=== PATIENT | female | born 1940 | race Caucasian/White ===

== ENCOUNTER → 2017-01-10 16:49 | Outpatient (CLI) | payer OTHER, MEDICARE | END | disposition home or self-care (01) | LOC: D.MAMMO 09:15 | DX: Z12.31 Encounter for screening mammogram for malignant neoplasm of breast (principal) ==

== ENCOUNTER → 2018-03-03 19:42 | Outpatient (CLI) | payer OTHER, MEDICARE | END | disposition home or self-care (01) | LOC: D.MAMMO 13:00 | DX: Z12.31 Encounter for screening mammogram for malignant neoplasm of breast (principal) ==

== ENCOUNTER → 2019-01-24 13:39 | Outpatient (CLI) | payer MEDICARE | END | disposition home or self-care (01) | LOC: D.CT 13:39 | PROVIDERS: ATTEND Family Medicine | DX: H53.8 Other visual disturbances (principal) ==

== ENCOUNTER → 2019-03-07 16:26 | Outpatient (CLI) | payer MEDICARE | END | disposition home or self-care (01) | LOC: D.MAMMO 02-06 14:00 | PROVIDERS: ATTEND Family Medicine | DX: Z12.31 Encounter for screening mammogram for malignant neoplasm of breast (principal) ==

== ENCOUNTER 2019-08-26 12:07 | Emergency (ER) | payer MEDICARE ==
[~2019-08-26] VITALS: Ht 172.7 cm; Wt 86.4 kg
[2019-08-26 13:03] LABS: EOSINOPHILS 4.4 % (0-7); HEMATOCRIT 46.1 % (36.0-48.0); HEMOGLOBIN 15.4 g/dL (12-16); IMMATURE GRANULOCYTES 0.2 % (0-5); MCH 31.3 pg (26.0-34.0); MCHC 33.4 g/dL (31.0-37.0); MCV 93.7 fL (80.0-100.0); MEAN PLATELET VOLUME 10.6 fL (7.4-10.4); MONOCYTES 8.5 % (2-11); NEUTROPHILS 65.9 % (40-80); PLATELET COUNT 168 10x3/uL (130-400); RBC 4.92 10x6/uL (4.00-5.40); RDW 13.5 % (11.5-14.5); WBC 9.2 10x3/uL (4.8-10.8)
[2019-08-26 13:15] LABS: APTT 24.2 SECONDS (22.8-39.4); INR 1.06 (0.85-1.17); PROTIME 13.3 SECONDS (11.6-15.0)
[2019-08-26 13:23] LABS: ALBUMIN 3.8 g/dL (3.4-5.0); ALKALINE PHOSPHATASE 100 U/L (46-116); ALT (SGPT) 16 U/L (10-68); BILIRUBIN - TOTAL 0.57 mg/dL (0.2-1.3); CALC OSMOLALITY 287 mosm/kg (275-300); CALCIUM 9.1 mg/dL (8.5-10.1); CARBON DIOXIDE 25.7 mmol/L (21.0-32.0); CHLORIDE - SERUM 109 mmol/L (98-107); CREATININE - SERUM 1.2 mg/dL (0.6-1.3); GLUCOSE 104 mg/dL (74-106); POTASSIUM - SERUM 4.2 mmol/L (3.5-5.1); PROTEIN - SERUM 7.2 g/dL (6.4-8.2); SODIUM 143 mmol/L (136-145); UREA NITROGEN 22 mg/dL (7-18); eGFR NON AFRICAN AMERICAN 46 mL/min (90-120)
[2019-08-26 13:48] LABS: CKMB 1.4 U/L (0.0-3.6); CREATINE KINASE 98 UL (21-215); MAGNESIUM - SERUM 2.1 mg/dL (1.8-2.4); THYROID STIMULATING HORMONE 3.96 uIU/mL (0.36-3.74)
[2019-08-26 13:49] LABS: TROPONIN-I < 0.017 ng/mL (0.000-0.060)
[2019-08-26 14:19] LABS: APPEARANCE CLEAR (CLEAR); BILIRUBIN NEGATIVE (NEGATIVE); COLOR YELLOW (YELLOW); GLUCOSE NEGATIVE (NEGATIVE); KETONE NEGATIVE (NEGATIVE); NITRITE NEGATIVE (NEGATIVE); PROTEIN NEGATIVE (NEGATIVE); SPECIFIC GRAVITY 1.015 (1.005-1.020); UROBILINOGEN NORMAL (NORMAL)
[2019-08-26 14:20] LABS: BACTERIA FEW /hpf (NEGATIVE); EPITHELIAL CELLS 0-5 /hpf (0-5); RED CELLS - URINE RARE /hpf (0-5); WHITE CELLS - URINE 0-5 /hpf (NEGATIVE)
== END 2019-08-26 15:23 | disposition other institution (70) ==
LOC: D.ER 12:07
PROVIDERS: Emergency Medicine
DX: G45.9 Transient cerebral ischemic attack, unspecified (principal); R47.02 Dysphasia; I10 Essential (primary) hypertension

== ENCOUNTER 2019-09-17 17:01 | Inpatient (IN) | payer MEDICARE ==
[~2019-09-17] VITALS: Ht 172.7 cm; Wt 84.8 kg
[2019-09-17] MEDS ORDERED: REMERON15 MG PO (17:16)
[2019-09-17] MEDS ORDERED: AVAPRO150 MG PO (17:16)
[2019-09-17] MEDS ORDERED: ZETIA10 MG PO (17:16)
[2019-09-17] MEDS ORDERED: SYNTHROID25 MCG PO (17:16)
[2019-09-17] MEDS ORDERED: PROTONIX40 MG PO (17:17)
[2019-09-17] MEDS ORDERED: VITAMIN D5000 UNIT PO (17:17)
[2019-09-17] MEDS ORDERED: LIPITOR10 MG PO (17:18)
[2019-09-17] MEDS ORDERED: LEVOCETIRIZINE PO (17:19)
[2019-09-17] MEDS ORDERED: NORVASC10 MG PO (17:19)
[2019-09-17] MEDS ORDERED: ASPIRIN81 MG PO (17:20)
[2019-09-17] MEDS ORDERED: LIPITOR40 MG PO (17:23)
[2019-09-17 18:05] LABS: BASOPHILS 0.4 % (0-2); EOSINOPHILS 1.4 % (0-7); HEMATOCRIT 42.7 % (36.0-48.0); HEMOGLOBIN 13.8 g/dL (12-16); IMMATURE GRANULOCYTES 0.2 % (0-5); MCH 30.9 pg (26.0-34.0); MCHC 32.3 g/dL (31.0-37.0); MCV 95.7 fL (80.0-100.0); MEAN PLATELET VOLUME 10.8 fL (7.4-10.4); MONOCYTES 10.3 % (2-11); NEUTROPHILS 72.7 % (40-80); RBC 4.46 10x6/uL (4.00-5.40); RDW 12.5 % (11.5-14.5); WBC 13.2 10x3/uL (4.8-10.8)
[2019-09-17 18:28] LABS: CALC OSMOLALITY 286 mosm/kg (275-300); CALCIUM 9.1 mg/dL (8.5-10.1); CARBON DIOXIDE 25.1 mmol/L (21.0-32.0); CHLORIDE - SERUM 107 mmol/L (98-107); CREATININE - SERUM 1.2 mg/dL (0.6-1.3); GLUCOSE 115 mg/dL (74-106); POTASSIUM - SERUM 4.2 mmol/L (3.5-5.1); SODIUM 142 mmol/L (136-145); UREA NITROGEN 20 mg/dL (7-18); eGFR NON AFRICAN AMERICAN 46 mL/min (90-120)
[2019-09-17 18:30] LABS: PLATELET COUNT 244 10x3/uL (130-400)
--- NOTE | 2019-09-17 18:35 | NUR ---
O2 SAT AT 88% ON RA, RESPIRATIONS EVEN AND UNLABORED. O2 AT 3LPM VIA NC APPLIED, O2 SAT INCREASED TO 96%. TREATING PROVIDER NOTIFIED OF THE ABOVE. PT DENIES ANY PAIN OR FURTHER NEEDS. CALL LIGHT IN REACH, FAMILY AT BEDSIDE.
[2019-09-17 18:42] LABS: ALBUMIN 3.4 g/dL (3.4-5.0); ALKALINE PHOSPHATASE 122 U/L (46-116); ALT (SGPT) 24 U/L (10-68); BILIRUBIN - TOTAL 0.57 mg/dL (0.2-1.3); CKMB 1.9 U/L (0.0-3.6); CREATINE KINASE 103 UL (21-215); PRO BNP 7963 pg/mL (0-450); PROTEIN - SERUM 7.1 g/dL (6.4-8.2)
[2019-09-17 18:47] VITALS: BP 136/79
[2019-09-17 19:03] LABS: TROPONIN-I 0.377 ng/mL (0.000-0.060)
--- NOTE | 2019-09-17 19:11 | NUR ---
HAND OFF REPORT GIVEN TO CAIN ARNOLD
--- NOTE | 2019-09-17 19:15 | NUR ---
PT RESTING ON BED. NO S/S OF ACUTE DISTRESS NOTED. PT FAMILY AT BEDSIDE.
[2019-09-17 20:00] VITALS: BP 146/83
--- NOTE | 2019-09-17 20:00 | NUR ---
PT AMBULATED TO RESTROOM WITH A STEADY GAIT. SPOUSE AT SIDE.
[2019-09-17 20:08] LABS: MAGNESIUM - SERUM 2.1 mg/dL (1.8-2.4); THYROID STIMULATING HORMONE 3.08 uIU/mL (0.36-3.74)
[2019-09-17 21:14] LABS: CKMB 1.6 U/L (0.0-3.6); CREATINE KINASE 100 UL (21-215)
[2019-09-17 21:19] LABS: TROPONIN-I 0.276 ng/mL (0.000-0.060)
[2019-09-17] MEDS ORDERED: COZAAR50 MG PO (21:50)
--- NOTE | 2019-09-17 21:50 | NUR ---
RECIEVED TO ROOM 2127 FROM ER VIA . PT A&O. VITALS STABLE. IV TO RIGHT HAND SL, SITE CLEAN AND DRY. O2 AT 2 LITERS VIA IL, PT STATED THAT SHE DOES NOT WEAR OXYGEN AT HOME. PLACED ON TELEMETRY, 68 SR. HISTORY AND MED REC OBTAINED. PT CURRENTLY DENIES PAIN OR NEEDS, BED LOW, CL IN REACH.
[2019-09-18] VITALS: BP 117/69
--- NOTE | 2019-09-18 00:25 | NUR ---
WARM BLANKET PLACED ON PT AT PT REQUEST.
--- NOTE | 2019-09-18 03:38 | NUR ---
RESTING WITH EYES CLOSED, RESPERATIONS EVEN, NO S/S DISTRESS NOTED.
[2019-09-18 04:00] VITALS: BP 130/69
[2019-09-18 05:40] LABS: CKMB 1.3 U/L (0.0-3.6); CREATINE KINASE 86 UL (21-215)
--- NOTE | 2019-09-18 07:03 | NUR ---
REPORT RECEIVED. WILL CONTINUE WITH POC. PT CURRENTLY LYING SUPINE. CALL LIGHT W/I REACH. RR EVEN AND UNLABORED ON 2L 02. R.HAND PIV IS SALINE LOCKED. PT IS AAO AND DENIES ANY NEEDS AT THIS TIME. NO S/S OF DISTRESS NOTED. WILL CTM.
[2019-09-18 09:38] LABS: CKMB 1.5 U/L (0.0-3.6); CREATINE KINASE 84 UL (21-215)
[2019-09-18 09:39] LABS: TROPONIN-I 0.235 ng/mL (0.000-0.060)
[2019-09-18 12:05] VITALS: BP 118/41
--- NOTE | 2019-09-18 14:29 | NUR ---
I have reviewed this patient and I concur with the Shift Assessment completed by the Licensed Practical Nurse today this shift.
[2019-09-18 14:36] VITALS: Ht 172.7 cm; Wt 84.8 kg
[2019-09-18 16:00] VITALS: BP 106/64
--- NOTE | 2019-09-18 16:02 | MORECARE ---
CASE MANAGEMENT DISCHARGE SUMMARY PATIENT: TRACY SHERIDAN UNIT: [id number] ADM DATE: 09/17/19 AGE: 78 : 42 SEX: F ROOM/BED: D.3278 AUTHOR: MISSAEL HART PHYSICIAN: REFERRING PHYSICIAN: PATRICIA KEANE MD DATE OF SERVICE: 09/18/19 Discharge Plan Patient Name: TRACY SHERIDAN Facility: [facility]:[place] : 1940 Planned Disposition: Home Anticipated Discharge Date: 09/20/19 Discharge Date: Expected LOS: 3 Initial Reviewer: [email or web address] Initial Review Date: 09/17/2019 Generated: 09/18/19 5:02 pm DCPIA - Discharge Planning Initial Assessment Updated by [email or web address]: Larisa Brambila on 09/18/19 3:59 pm * Is the patient Alert and Oriented? Yes * How many steps to enter\exit or inside your home? * PCP Dr. Keane * Pharmacy [facility] #2 * Preadmission Environment Home with Family * ADLs Independent * Equipment Cane Nebulizer Rolling Walker Wheelchair * List name and contact numbers for known caregivers / representatives who currently or will assist patient after discharge: Tre Sheridan - spouse - [phone] * Verbal permission to speak to the caregivers and representatives has been obtained from the patient. Yes * Community resources currently utilized None * Additional services required to return to the preadmission environment? No * Can the patient safely return to the preadmission environment? Yes * Has this patient been hospitalized within the prior 30 days at any hospital? Yes Patient Name: TRACY SHERIDAN Page [phone] at 1602 All edits/amendments must be made on the electronic document DICTATION DATE: 09/18/191601 HEEL SEWER: CHAU 09/18/19 160 RPT#: [id number] DC DATE: STATUS: ADM IN [facility] [address] [place] [address] END OF REPORT
--- NOTE | 2019-09-18 16:11 | MORECARE ---
CASE MANAGEMENT DISCHARGE SUMMARY PATIENT: TRACY SHERIDAN UNIT: [id number] ADM DATE: 09/17/19 AGE: 78 : 42 SEX: F ROOM/BED: D.0524 AUTHOR: MISSAEL HART PHYSICIAN: REFERRING PHYSICIAN: PATRICIA KEANE MD DATE OF SERVICE: 09/18/19 Discharge Plan Patient Name: TRACY SHERIDAN Facility: [facility]:[place] : 1940 Planned Disposition: Home Anticipated Discharge Date: 09/20/19 Discharge Date: Expected LOS: 3 Initial Reviewer: [email or web address] Initial Review Date: 09/17/2019 Generated: 09/18/19 5:11 pm Comments DCP- Discharge Planning Updated by [email or web address]: Larisa Brambila on 09/18/19 3:[address] DC PLAN: Return home with her independently. ANTICIPATED DC NEEDS: Denied known dc needs at this time. CM met with patient to complete initial dc planning assessment. CM educated patient on the CM role and verbal consent given by patient to complete assessment. CM verified patient's address, phone number, and emergency contact phone numbers. Patient lives at home with her and reports she is independent in her care at home. At discharge patient plans to return home and feels this is a safe discharge. CM discussed availability of home health, rehab services, and medical equipment. Patient denied known discharge needs at this time. Patient reports her will transport her home at time of discharge. CM will continue to follow and will assist as needed with dc plans/needs. Lraisa Brambila RN, [facility] DCPIA - Discharge Planning Initial Assessment Updated by [email or web address]: Larisa Brambila on 09/18/19 3:59 pm * Is the patient Alert and Oriented? Yes * How many steps to enter\exit or inside your home? * PCP Dr. Keane * Pharmacy [facility] #2 * Preadmission Environment Home with Family * ADLs Independent * Equipment Cane Nebulizer Rolling Walker Wheelchair * List name and contact numbers for known caregivers / representatives who currently or will assist patient after discharge: Tre Sheridan - [facility] - [phone] * Verbal permission to speak to the caregivers and representatives has been obtained from the patient. Yes * Community resources currently utilized None * Additional services required to return to the preadmission environment? No * Can the patient safely return to the preadmission environment? Yes * Has this patient been hospitalized within the prior 30 days at any hospital? Yes Last DP export: 09/18/19 3:02 Patient Name: TRACY SHERIDAN Page [phone] at 1611 All edits/amendments must be made on the electronic document DICTATION DATE: 09/18/191609 SOCIAL MEDIA MARKETING MANAGER: CHAU 09/18/191609 RPT#: [id number] DC DATE: STATUS: ADM IN [facility] [address] [place] [address] END OF REPORT
[2019-09-18 20:00] VITALS: BP 105/65
[2019-09-19] VITALS: BP 116/71
[2019-09-19 04:00] VITALS: BP 125/57
--- NOTE | 2019-09-19 07:10 | NUR ---
PT LYING IN BED WITH HOB ELEVATED. ALERT AND ORIENTED. PT ASKED IF SHE COULD SHOWER TODAY AND I STATED HER SHE COULD WITH ASSISTANCE. PT HAS NO FURTHER NEEDS AT THIS TIME. BED LOW. CL IN REACH.
--- NOTE | 2019-09-19 10:37 | NUR ---
I have reviewed this patient and I concur with the Shift Assessment completed by the Licensed Practical Nurse today this shift.
[2019-09-19 13:01] VITALS: BP 110/647
--- NOTE | 2019-09-19 15:17 | NUR ---
PT TOOK SHOWER WITH SCOW CAPTAIN ASSISTANCE.
--- NOTE | 2019-09-19 17:14 | HP ---
PATIENT: TRACY SHERIDAN MEDICAL RECORD: [id number] ACCOUNT: [id number] LOCATION:[address] : 44 ADMISSION DATE: 09/17/19 PCP: PATRICIA DE LA CRUZ MD HISTORY AND PHYSICAL EXAMINATION REASON FOR ADMISSION: Shortness of breath and cough. HISTORY OF PRESENT ILLNESS: The patient is a 78-year-old female, who incurred a left thalamic CVA a month ago. She was transferred to [facility] in [place] for neurological consultation. Her workup there was unremarkable including CT of the carotids and MRA of the brain except for left thalamic infarct. She also had a CARMEN that showed ejection fraction of 65%. No valvular issues or abnormal wall issues. She said she has been tired since that, but last weekend she and her drove to [place] for a family wedding. Said night she just felt like she had a cough and chills, but she had not developed fever. She felt short of breath with walking any distance. That lasted throughout the weekend. She had increasing dry cough. Yesterday, her checked her sat and was in the mid 80s and he brought her to the Emergency Room for evaluation. Dr. Rangel attended the patient and felt she was in congestive heart failure based on his interpretation of her chest x-ray, which radiology read as normal, and elevated troponin and BNP. She has no history of congestive heart failure. Denies any recent peripheral edema or leg swelling or exertional chest pain. She denies sputum production or fever. She has been fatigued since her CVA, but has had no exertional chest pain. 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 PAST SURGICAL HISTORY: He had bladder suspension and lipoma removed from the left axilla. FAMILY HISTORY: Father at 88, had hypertension and CAD. Mother with essential hypertension and mild renal insufficiency. SOCIAL HISTORY: Nonsmoker, nondrinker. [place] is . [place] . She is up to date on immunizations including Prevnar and Pneumovax and flu vaccine. HOME MEDICATIONS: Mirtazapine 15 mg at bedtime, losartan 50 mg daily, aspirin 81 mg a day, atorvastatin 80 mg at bedtime, vitamin D 5000 unit tablet weekly, levothyroxine 25 mcg p.o. daily. ALLERGIES: MACRODANTIN, LUMINAL, PRAVASTATIN, AND TOPAMAX. REVIEW OF SYSTEMS: CONSTITUTIONAL: Feels fatigued for the last month since her stroke. No fever. HEENT: No recent visual change, sinus congestion, or sore throat. RESPIRATORY: Has had a dry cough nonproductive, exertional dyspnea for the last 4 days. Denies sputum production of any significance. CARDIAC: Denies exertional chest pain, but admits to exertional dyspnea. History of hypertension. No history of claudication or palpitations. HISTORY AND PHYSICAL [id number] TRACY SHERIDAN GASTROINTESTINAL: No nausea, vomiting, change in stools, or blood per rectum. GENITOURINARY: Mild stress incontinence. No dysuria. GYNECOLOGIC: No vaginal bleeding. ENDOCRINE: Denies polyuria, polydipsia, heat or cold intolerance. NEUROLOGIC: Recent thalamic stroke with minimal deficit. She has mild cognitive impairment to recent memory. PHYSICAL EXAMINATION: VITAL SIGNS: Temperature 98.2, heart rate 102 and regular, respirations were 20, sat was 88% in the ED and responding to O2 at 2 liters to 94%, blood pressure 140/86. GENERAL: The patient is alert and oriented, not tachypneic. EYES: Clear. NECK: Supple. CHEST: Totally clear without wheeze or rales. Carotids clear. HEART: Regular rate without MGR. PMI appropriate. ABDOMEN: Soft, mildly obese, nontender. EXTREMITIES: Shows 1+ pretibial edema. Negative Homans sign. NEUROLOGICAL: No cords noted. LABORATORY DATA: Cardiac enzymes showed a troponin of 0.3, elevated from 0.276 on admission with normal CPK-MB and creatine kinase. White count is 13,000 with normal diff, H&H is 13.8 and 42.7 respectively. BUN is 20, creatinine is 1.2, calcium 9.1, magnesium 2.1, alkaline phosphatase 122. Troponin 0.377 initially on admission. ProBNP is 8376. Chest x-ray unremarkable. ASSESSMENT: Exertional dyspnea, etiology unknown, possible cardiac source. Cough, etiology unknown, does not appear infectious. History of recent thalamic CVA with normal CARMEN. Mild cognitive impairment. Fibromyalgia. Essential hypertension. Hyperlipidemia. PLAN: The patient will be admitted. We will check D-dimer. If elevated, CTA of the chest. Otherwise, cardiology consult will be obtained. TRANSINT:[id number] Voice Confirmation ID: [id number] DOCUMENT ID: [id number] PATRICIA DE LA CRUZ MD at 1714 CC: [id number] DICTATION DATE: 09/18/19717 FISHER: 09/18/19 08 ADM IN [place] [id number] [place] [id number]
[2019-09-19 20:00] VITALS: BP 121/75
[2019-09-20] VITALS (7 sets, daily range): BP systolic 102–125; BP diastolic 57–78
[2019-09-20 05:17] LABS: BASOPHILS 0.6 % (0-2); HEMOGLOBIN 13.4 g/dL (12-16); IMMATURE GRANULOCYTES 0.2 % (0-5); LYMPHOCYTES 19.8 % (15-50); MCHC 32.7 g/dL (31.0-37.0); MCV 94.9 fL (80.0-100.0); MONOCYTES 11.3 % (2-11); NEUTROPHILS 65.1 % (40-80); PLATELET COUNT 225 10x3/uL (130-400); RBC 4.32 10x6/uL (4.00-5.40); RDW 12.4 % (11.5-14.5); WBC 9.5 10x3/uL (4.8-10.8)
[2019-09-20 05:33] LABS: ANION GAP 14.2 mmol/L (8-16); CALCIUM 8.6 mg/dL (8.5-10.1); CARBON DIOXIDE 23.4 mmol/L (21.0-32.0); CREATININE - SERUM 1.1 mg/dL (0.6-1.3); POTASSIUM - SERUM 3.6 mmol/L (3.5-5.1)
--- NOTE | 2019-09-20 07:15 | NUR ---
RECEIVED PT IN BED AAOX4 RESP UNLABORED SKIN W/D COLOR WNL DENIES ANY NEEDS OR DISCOMFORT AT THIS TIME
[2019-09-20 09:10] LABS: HAPTOGLOBIN 244 mg/dL (34-200)
--- NOTE | 2019-09-20 13:00 | NUR ---
Nutrition Follow-up: Pt reports improved appetite/PO intake. No BM since before admit. Diet: Cardiac No new wt Labs reviewed Meds noted: Remeron -Continue current diet as tolerated. -[place] food preferences within diet restrictions. -MD may consider stool softener. -RD following.
--- NOTE | 2019-09-20 13:43 | MORECARE ---
CASE MANAGEMENT DISCHARGE SUMMARY PATIENT: TRACY SHERIDAN UNIT: [id number] ADM DATE: 09/17/19 AGE: 78 : 42 SEX: F ROOM/BED: D.6784 AUTHOR: MISSAEL HART PHYSICIAN: REFERRING PHYSICIAN: PATRICIA KEANE MD DATE OF SERVICE: 09/20/19 Discharge Plan Patient Name: TRACY SHERIDAN Facility: [facility]:[place] : 1940 Planned Disposition: Home Anticipated Discharge Date: 09/20/19 Discharge Date: Expected LOS: 3 Initial Reviewer: [email or web address] Initial Review Date: 09/17/2019 Generated: 09/20/19 2:43 pm Comments DCP- Discharge Planning Updated by [email or web address]: Larisa Brambila on 09/18/19 3:[address] DC PLAN: Return home with her independently. ANTICIPATED DC NEEDS: Denied known dc needs at this time. CM met with patient to complete initial dc planning assessment. CM educated patient on the CM role and verbal consent given by patient to complete assessment. CM verified patient's address, phone number, and emergency contact phone numbers. Patient lives at home with her and reports she is independent in her care at home. At discharge patient plans to return home and feels this is a safe discharge. CM discussed availability of home health, rehab services, and medical equipment. Patient denied known discharge needs at this time. Patient reports her will transport her home at time of discharge. CM will continue to follow and will assist as needed with dc plans/needs. Larisa Brambila RN, [facility] DCPIA - Discharge Planning Initial Assessment Updated by [email or web address]: Larisa Brambila on 09/18/19 3:59 pm * Is the patient Alert and Oriented? Yes * How many steps to enter\exit or inside your home? * PCP Dr. Keane * Pharmacy [facility] #2 * Preadmission Environment Home with Family * ADLs Independent * Equipment Cane Nebulizer Rolling Walker Wheelchair * List name and contact numbers for known caregivers / representatives who currently or will assist patient after discharge: Tre Sheridan - [facility] - [phone] * Verbal permission to speak to the caregivers and representatives has been obtained from the patient. Yes * Community resources currently utilized None * Additional services required to return to the preadmission environment? No * Can the patient safely return to the preadmission environment? Yes * Has this patient been hospitalized within the prior 30 days at any hospital? Yes Last DP export: 09/18/19 3:11 Patient Name: TRACY SHERIDAN Page [phone] at 1343 All edits/amendments must be made on the electronic document DICTATION DATE: 09/20/19 134 HOME AIDE: CHAU 09/20/19 1343 RPT#: [id number] DC DATE: STATUS: ADM IN [facility] [address] [place] [address] END OF REPORT
[2019-09-20 15:10] LABS: ACLA - IGG AB <9 GPL U/mL (0-14); ACLA - IGM AB 10 MPL U/mL (0-12)
--- NOTE | 2019-09-20 16:17 | MORECARE ---
CASE MANAGEMENT DISCHARGE SUMMARY PATIENT: TRACY SHERIDAN UNIT: [id number] ADM DATE: 09/17/19 AGE: 78 : 42 SEX: F ROOM/BED: D.6554 AUTHOR: MISSAEL HART PHYSICIAN: REFERRING PHYSICIAN: PATRICIA KEANE MD DATE OF SERVICE: 09/20/19 Discharge Plan Patient Name: TRACY SHERIDAN Facility: [facility]:[place] : 1940 Planned Disposition: Home Anticipated Discharge Date: 09/20/19 Discharge Date: Expected LOS: 3 Initial Reviewer: [email or web address] Initial Review Date: 09/17/2019 Generated: 09/20/19 5:16 pm Comments DCP- Discharge Planning Updated by [email or web address]: Larisa Brambila on 09/18/19 3:[address] DC PLAN: Return home with her independently. ANTICIPATED DC NEEDS: Denied known dc needs at this time. CM met with patient to complete initial dc planning assessment. CM educated patient on the CM role and verbal consent given by patient to complete assessment. CM verified patient's address, phone number, and emergency contact phone numbers. Patient lives at home with her and reports she is independent in her care at home. At discharge patient plans to return home and feels this is a safe discharge. CM discussed availability of home health, rehab services, and medical equipment. Patient denied known discharge needs at this time. Patient reports her will transport her home at time of discharge. CM will continue to follow and will assist as needed with dc plans/needs. Larisa Brambila RN, [facility] DCPIA - Discharge Planning Initial Assessment Updated by [email or web address]: Larisa Brambila on 09/18/19 3:59 pm * Is the patient Alert and Oriented? Yes * How many steps to enter\exit or inside your home? * PCP Dr. Keane * Pharmacy [facility] #2 * Preadmission Environment Home with Family * ADLs Independent * Equipment Cane Nebulizer Rolling Walker Wheelchair * List name and contact numbers for known caregivers / representatives who currently or will assist patient after discharge: Tre Sheridan - [facility] - [phone] * Verbal permission to speak to the caregivers and representatives has been obtained from the patient. Yes * Community resources currently utilized None * Additional services required to return to the preadmission environment? No * Can the patient safely return to the preadmission environment? Yes * Has this patient been hospitalized within the prior 30 days at any hospital? Yes External Providers External Provider: [facility] Next Contact Date: 09/20/2019 Service Request Date: Service Type: Resolution: Reviewer: Comments: Coverage Notice Reviewer: POORNIMA Green Notice Issued Date-Time: 09/20/2019 15:10 Notice Type: IM Discharge Notice Notice Delivered To: Patient Relationship to Patient: Operations Specialists Name: Delivery Method: HAND - Hand Delivered [place] Days: Prior Verbal Notification: Recipient Understood Notice: Yes Recipient Signature: Yes Med Rec Note Co-signed by Attending: Coverage Notice Comment: Reviewer: POORNIMA Green Notice Issued Date-Time: 09/20/2019 15:10 Notice Type: Patient Choice Letter Notice Delivered To: Patient Relationship to Patient: Operations Specialists Name: Delivery Method: HAND - Hand Delivered [place] Days: Prior Verbal Notification: Recipient Understood Notice: Yes Recipient Signature: Yes Med Rec Note Co-signed by Attending: Coverage Notice Comment: BELKIS Holland DP export: 09/20/19 12:43 Patient Name: TRACY SHERIDAN Page 37925 at 1617 All edits/amendments must be made on the electronic document DICTATION DATE: 09/20/191615 HOUSEHOLD APPLIANCE ASSEMBLER: CHAU 09/20/191615 RPT#: [id number] DC DATE: STATUS: ADM IN [facility] [address] [place] [address] END OF REPORT
--- NOTE | 2019-09-20 16:34 | MORECARE ---
CASE MANAGEMENT DISCHARGE SUMMARY PATIENT: TRACY SHERIDAN UNIT: [id number] ADM DATE: 09/17/19 AGE: 78 : 42 SEX: F ROOM/BED: D.5851 AUTHOR: MISSAEL HART PHYSICIAN: REFERRING PHYSICIAN: PATRICIA KEANE MD DATE OF SERVICE: 09/20/19 Discharge Plan Patient Name: TRACY SHERIDAN Facility: [facility]:[place] : 1940 Planned Disposition: Home Anticipated Discharge Date: 09/20/19 Discharge Date: Expected LOS: 3 Initial Reviewer: [email or web address] Initial Review Date: 09/17/2019 Generated: 09/20/19 5:34 pm Comments DCP- Discharge Planning Updated by [email or web address]: Dev Green on 09/20/19 3:[address] Patient Name: TRACY SHERIDAN Admission Status: ER Accout number: [id number] Admission Date: 09-17-2019 : 1940 Admission Diagnosis: Attending: PATRICIA KEANE Current LOS: 3 Anticipated DC Date: 09-20-2019 Planned Disposition: Home Primary Insurance: [facility] [employer] Discharge Planning Comments: CM RECEIVED OXYGEN ORDER AND QUALIFYING OXYGEN TESTING, MET WITH PT IN ROOM TO DISCUSS DISCHARGE NEEDS AND PLANNING. CM DISCUSSED AVAILABILITY OF HOME HEALTH, REHAB SERVICES AND MEDICAL EQUIPMENT. PT WOULD LIKE OXYGEN FROM [facility]. CHOICE SIGNED. SPOUSE TO TRANSPORT HOME AT DISCHARGE. IMPORTANT MESSAGE FROM MEDICARE PROVIDED AND EXPLAINED. CM CALLED [facility], , SPOKE TO YUMIKO WHO TOOK OXYGEN ORDER. CM FAXED OXYGEN ORDER AND REFERRALTO [facility] AT [phone]. [facility] TO ARRANGE PORTABLE OXYGEN TO [facility] ROOM TOMORROW, 09-21-19 AND HOME OXYGEN FOR HOME DELIVERY AFTER PT ARRIVES HOME. Shrimp Trawler Captain: Dev Green DCP- Discharge Planning Updated by [email or web address]: Larisa Brambila on 09/18/19 3:[address] DC PLAN: Return home with her independently. ANTICIPATED DC NEEDS: Denied known dc needs at this time. CM met with patient to complete initial dc planning assessment. CM educated patient on the CM role and verbal consent given by patient to complete assessment. CM verified patient's address, phone number, and emergency contact phone numbers. Patient lives at home with her and reports she is independent in her care at home. At discharge patient plans to return home and feels this is a safe discharge. CM discussed availability of home health, rehab services, and medical equipment. Patient denied known discharge needs at this time. Patient reports her will transport her home at time of discharge. CM will continue to follow and will assist as needed with dc plans/needs. Larisa Brambila RN, [facility] DCPIA - Discharge Planning Initial Assessment Updated by [email or web address]: Larisa Brambila on 09/18/19 3:59 pm * Is the patient Alert and Oriented? Yes * How many steps to enter\exit or inside your home? * PCP Dr. Keane * Pharmacy [facility] #2 * Preadmission Environment Home with Family * ADLs Independent * Equipment Cane Nebulizer Rolling Walker Wheelchair * List name and contact numbers for known caregivers / representatives who currently or will assist patient after discharge: Tre Sheridan - [facility] - [phone] * Verbal permission to speak to the caregivers and representatives has been obtained from the patient. Yes * Community resources currently utilized None * Additional services required to return to the preadmission environment? No * Can the patient safely return to the preadmission environment? Yes * Has this patient been hospitalized within the prior 30 days at any hospital? Yes Coverage Notice Reviewer: [email or web address] Amina Green Notice Issued Date-Time: 09/20/2019 15:10 Notice Type: IM Discharge Notice Notice Delivered To: Patient Relationship to Patient: Spreader Name: Delivery Method: HAND - Hand Delivered [place] Days: Prior Verbal Notification: Recipient Understood Notice: Yes Recipient Signature: Yes Med Rec Note Co-signed by Attending: Coverage Notice Comment: Reviewer: [email or web address] Amina Green Notice Issued Date-Time: 09/20/2019 15:10 Notice Type: Patient Choice Letter Notice Delivered To: Patient Relationship to Patient: Spreader Name: Delivery Method: HAND - Hand Delivered [place] Days: Prior Verbal Notification: Recipient Understood Notice: Yes Recipient Signature: Yes Med Rec Note Co-signed by Attending: Coverage Notice Comment: [email or web address] Last DP export: 09/20/19 3:17 Patient Name: LEON SHERIDANANDRA Page 14173 at 1634 All edits/amendments must be made on the electronic document DICTATION DATE: 09/20/191633 CIVIL ENGINEERING DRAFTER: CHAU 09/20/191633 RPT#: [id number] DC DATE: STATUS: ADM IN [facility] [address] [place] [address] END OF REPORT
[2019-09-21 04:00] VITALS: BP 106/52
--- NOTE | 2019-09-21 07:06 | MORECARE ---
CASE MANAGEMENT DISCHARGE SUMMARY PATIENT: TRACY SHERIDAN UNIT: [id number] ADM DATE: 09/17/19 AGE: 78 : 42 SEX: F ROOM/BED: D.7397 AUTHOR: MISSAEL HART PHYSICIAN: REFERRING PHYSICIAN: PATRICIA KEANE MD DATE OF SERVICE: 09/21/19 Discharge Plan Patient Name: TRACY SHERIDAN Facility: [facility]:[place] : 1940 Planned Disposition: Home Anticipated Discharge Date: 09/20/19 Discharge Date: Expected LOS: 3 Initial Reviewer: [email or web address] Initial Review Date: 09/17/2019 Generated: 09/21/19 8:06 am Comments DCP- Discharge Planning Updated by [id number]: Dev Green on 09/20/19 3:[address] Patient Name: TRACY SHERIDAN Admission Status: ER Accout number: [id number] Admission Date: 09-17-2019 : 1940 Admission Diagnosis: Attending: PATRICIA KEANE Current LOS: 3 Anticipated DC Date: 09-20-2019 Planned Disposition: Home Primary Insurance: [facility] MEDICARE SOLUTIONS Discharge Planning Comments: CM RECEIVED OXYGEN ORDER AND QUALIFYING OXYGEN TESTING, MET WITH PT IN ROOM TO DISCUSS DISCHARGE NEEDS AND PLANNING. CM DISCUSSED AVAILABILITY OF HOME HEALTH, REHAB SERVICES AND MEDICAL EQUIPMENT. PT WOULD LIKE OXYGEN FROM [facility]. CHOICE SIGNED. SPOUSE TO TRANSPORT HOME AT DISCHARGE. IMPORTANT MESSAGE FROM MEDICARE PROVIDED AND EXPLAINED. CM CALLED [facility], , SPOKE TO YUMIKO WHO TOOK OXYGEN ORDER. CM FAXED OXYGEN ORDER AND REFERRALTO [facility] AT [phone]. [facility] TO ARRANGE PORTABLE OXYGEN TO [facility] ROOM TOMORROW, 09-21-19 AND HOME OXYGEN FOR HOME DELIVERY AFTER PT ARRIVES HOME. Ware Server: Dev Green DCP- Discharge Planning Updated by [email or web address]: Larisa Brambila on 09/18/19 3:[address] DC PLAN: Return home with her independently. ANTICIPATED DC NEEDS: Denied known dc needs at this time. CM met with patient to complete initial dc planning assessment. CM educated patient on the CM role and verbal consent given by patient to complete assessment. CM verified patient's address, phone number, and emergency contact phone numbers. Patient lives at home with her and reports she is independent in her care at home. At discharge patient plans to return home and feels this is a safe discharge. CM discussed availability of home health, rehab services, and medical equipment. Patient denied known discharge needs at this time. Patient reports her will transport her home at time of discharge. CM will continue to follow and will assist as needed with dc plans/needs. Larisa Brambila RN, [facility] DCPIA - Discharge Planning Initial Assessment Updated by [email or web address]: Larisa Brambila on 09/18/19 3:59 pm * Is the patient Alert and Oriented? Yes * How many steps to enter\exit or inside your home? * PCP Dr. Keane * [facility] * Preadmission Environment Home with Family * ADLs Independent * Equipment Cane Nebulizer Rolling Walker Wheelchair * List name and contact numbers for known caregivers / representatives who currently or will assist patient after discharge: Tre Sheridan - [facility] - [phone] * Verbal permission to speak to the caregivers and representatives has been obtained from the patient. Yes * Community resources currently utilized None * Additional services required to return to the preadmission environment? No * Can the patient safely return to the preadmission environment? Yes * Has this patient been hospitalized within the prior 30 days at any hospital? Yes Coverage Notice Reviewer: [email or web address] Amina Green Notice Issued Date-Time: 09/20/2019 15:10 Notice Type: IM Discharge Notice Notice Delivered To: Patient Relationship to Patient: Cheese Wrapper Name: Delivery Method: HAND - Hand Delivered [place] Days: Prior Verbal Notification: Recipient Understood Notice: Yes Recipient Signature: Yes Med Rec Note Co-signed by Attending: Coverage Notice Comment: Reviewer: [email or web address] Amina Green Notice Issued Date-Time: 09/20/2019 15:10 Notice Type: Patient Choice Letter Notice Delivered To: Patient Relationship to Patient: Cheese Wrapper Name: Delivery Method: HAND - Hand Delivered [place] Days: Prior Verbal Notification: Recipient Understood Notice: Yes Recipient Signature: Yes Med Rec Note Co-signed by Attending: Coverage Notice Comment: HEALTHTYRA Last DP export: 09/20/19 3:34 Patient Name: ARVIN TRACY Page [id number] at 0706 All edits/amendments must be made on the electronic document DICTATION DATE: 09/21/19705 SPECIAL PROCEDURE TECHNOLOGIST: CHAU 09/21/19705 RPT#: [id number] DC DATE: STATUS: ADM IN [facility] [address] [place] [address] END OF REPORT
--- NOTE | 2019-09-21 07:15 | NUR ---
REPORT RECEIVED FROM CHAIR INSPECTOR AND PATIENT CARE ASSUMED. PATIENT LAYING IN BED ON BACK AWAKE, ALERT AND ORIENTED X 4. PATIENT DENIES ANY NEEDS OR PAIN. WILL CONTINUE WITH PLAN OF CARE. SR UP X 2 BED IN LOW POSITION ANDCALL LIGHT IN REACH.
[2019-09-21 08:47] VITALS: BP 109/64
--- NOTE | 2019-09-21 10:00 | NUR ---
PATIENT AMBULATING IN HALLWAY WITH PT. TOLERATING WELL.
[2019-09-21 12:06] VITALS: BP 130/65
[2019-09-21 12:09] LABS: LUPUS - INTERPRETATION Comment: (()); LUPUS - THROMBIN TIME 20.7 sec (0.0-23.0); LUPUS - dRVVT 42.3 sec (0.0-47.0)
[2019-09-21 12:09] LABS: PROTEIN S - FREE 107 % (57-157); PROTEIN S - FUNCTIONAL 77 % (63-140); PROTEIN S - TOTAL 119 % (60-150)
--- NOTE | 2019-09-21 12:55 | NUR ---
PATIENT IS STABLE AND VSS. PATIENT DENIES ANY NEED OR PAIN. WILL CONTINUE TO MONITOR. SR UP X 2 BED IN LOW POSITION AND CALL LIGHT IN REACH.
--- NOTE | 2019-09-21 13:30 | NUR ---
DR MIKE ON UNIT. PATIENT AMBULATING ON UNIT AND DR MIKE EVALUATED WHILE PATIENT WALKING . NEW ORDERS RECEIVED. WILL CONTINUE TO MONITOR.
[2019-09-21] MEDS ORDERED: ELIQUIS5 MG PO (14:05)
--- NOTE | 2019-09-21 15:06 | NUR ---
UPON ADMIT, PATIENT REPORTS TO HAVING A FLU SHOT THIS YEAR. I GAVE THE PATIENT A BOOKLET FOR ASSISTACE ON ELIQUIS.
[2019-09-21 15:09] LABS: ANTITHROMBIN III ACTIVITY 113 % (75-135); ANTITHROMBIN III ANTIGEN 112 % (72-124)
[2019-09-21 16:05] VITALS: BP 127/52
--- NOTE | 2019-09-21 16:18 | NUR ---
ORDER RECEIVED FOR DC. PATIENT IS STABLE AND VSS. PATIENT DENIES ANY NEEDS OR PAIN. WRITTEN AND VERBAL INSTRUCTIONS GIVEN TO PATIENT AND . WENT OVER MED ORDERS VERY SPECIFICALLY. PATIENT AND VERIFIED UNDERSTANDING AND PATIENT SIGNED DC ORDERS. IV DCD WITHOUT DIFFICULTY WITH ENTIRE CATHETER INTACT. PATIENT HAS O2 IN PLACE PER NC AT 2 L WITH PORTABLE O2 TANK. PATIENT TO FRONT DOOR VIA WC ACCOMPANIED PER HOSPITAL PERSONNEL AND SPOUSE. PATIENT DCD TO HOME FOR SELF CARE.
[2019-09-22 04:07] LABS: PROTEIN S - FREE 79 % (57-157); PROTEIN S - FREE 86 % (57-157); PROTEIN S - FUNCTIONAL 83 % (63-140); PROTEIN S - TOTAL 123 % (60-150); PROTEIN S - TOTAL 125 % (60-150)
--- NOTE | 2019-09-22 11:34 | MORECARE ---
CASE MANAGEMENT DISCHARGE SUMMARY PATIENT: TRACY SHERIDAN UNIT: [id number] ADM DATE: 09/17/19 AGE: 78 : 42 SEX: F ROOM/BED: D.2242 AUTHOR: MISSAEL HART PHYSICIAN: REFERRING PHYSICIAN: PATRICIA KEANE MD DATE OF SERVICE: 09/22/19 Discharge Plan Patient Name: TRACY SHERIDAN Facility: [facility]:[place] : 1940 Planned Disposition: Home Anticipated Discharge Date: 09/20/19 Discharge Date: 09/21/2019 Expected LOS: 3 Initial Reviewer: [email or web address] Initial Review Date: 09/17/2019 Generated: 09/22/19 12:34 pm Comments DCP- Discharge Planning Updated by [email or web address]: Dev Green on 09/20/19 3:[address] Patient Name: TRACY SHERIDAN Admission Status: ER Accout number: [id number] Admission Date: 09-17-2019 : 1940 Admission Diagnosis: Attending: PATRICIA KEANE Current LOS: 3 Anticipated DC Date: 09-20-2019 Planned Disposition: Home Primary Insurance: [facility] MEDICARE SOLUTIONS Discharge Planning Comments: CM RECEIVED OXYGEN ORDER AND QUALIFYING OXYGEN TESTING, MET WITH PT IN ROOM TO DISCUSS DISCHARGE NEEDS AND PLANNING. CM DISCUSSED AVAILABILITY OF HOME HEALTH, REHAB SERVICES AND MEDICAL EQUIPMENT. PT WOULD LIKE OXYGEN FROM [facility]. CHOICE SIGNED. SPOUSE TO TRANSPORT HOME AT DISCHARGE. IMPORTANT MESSAGE FROM MEDICARE PROVIDED AND EXPLAINED. CM CALLED [facility], , SPOKE TO YUMIKO WHO TOOK OXYGEN ORDER. CM FAXED OXYGEN ORDER AND REFERRALTO [facility] AT [phone]. [facility] TO ARRANGE PORTABLE OXYGEN TO [facility] ROOM TOMORROW, 09-21-19 AND HOME OXYGEN FOR HOME DELIVERY AFTER PT ARRIVES HOME. Staff Psychologist: Dev Green DCP- Discharge Planning Updated by [email or web address]: Larisa Brambila on 09/18/19 3:[address] DC PLAN: Return home with her independently. ANTICIPATED DC NEEDS: Denied known dc needs at this time. CM met with patient to complete initial dc planning assessment. CM educated patient on the CM role and verbal consent given by patient to complete assessment. CM verified patient's address, phone number, and emergency contact phone numbers. Patient lives at home with her and reports she is independent in her care at home. At discharge patient plans to return home and feels this is a safe discharge. CM discussed availability of home health, rehab services, and medical equipment. Patient denied known discharge needs at this time. Patient reports her will transport her home at time of discharge. CM will continue to follow and will assist as needed with dc plans/needs. Larisa Brambila RN, [facility] DCPIA - Discharge Planning Initial Assessment Updated by [email or web address]: Larisa Brambila on 09/18/19 3:59 pm * Is the patient Alert and Oriented? Yes * How many steps to enter\exit or inside your home? * PCP Dr. Keane * Pharmacy [facility] * Preadmission Environment Home with Family * ADLs Independent * Equipment Cane Nebulizer Rolling Walker Wheelchair * List name and contact numbers for known caregivers / representatives who currently or will assist patient after discharge: Tre Sheridan - [facility] - [phone] * Verbal permission to speak to the caregivers and representatives has been obtained from the patient. Yes * Community resources currently utilized None * Additional services required to return to the preadmission environment? No * Can the patient safely return to the preadmission environment? Yes * Has this patient been hospitalized within the prior 30 days at any hospital? Yes Coverage Notice Reviewer: [id number] Green Notice Issued Date-Time: 09/20/2019 15:10 Notice Type: IM Discharge Notice Notice Delivered To: Patient Relationship to Patient: Salt Plant Operator Name: Delivery Method: HAND - Hand Delivered [place] Days: Prior Verbal Notification: Recipient Understood Notice: Yes Recipient Signature: Yes Med Rec Note Co-signed by Attending: Coverage Notice Comment: Reviewer: [email or web address] Amina Green Notice Issued Date-Time: 09/20/2019 15:10 Notice Type: Patient Choice Letter Notice Delivered To: Patient Relationship to Patient: Salt Plant Operator Name: Delivery Method: HAND - Hand Delivered [place] Days: Prior Verbal Notification: Recipient Understood Notice: Yes Recipient Signature: Yes Med Rec Note Co-signed by Attending: Coverage Notice Comment: HEALTHTYRA Last DP export: 09/21/19 6:06 a Patient Name: ARVIN TRACY Page 18441 at 1134 All edits/amendments must be made on the electronic document DICTATION DATE: 09/22/19 1134 AVIATION ELECTRONICS TECHNICIAN: CHAU 09/22/19 1134 RPT#: [id number] DC DATE:09/21/19 STATUS: DIS IN [facility] [address] [place] [address] END OF REPORT
[2019-09-23 12:08] LABS: PROTEIN C - ANTIGEN 102 % (60-150); PROTEIN C - FUNCTIONAL 121 % (73-180)
[2019-09-23 12:08] LABS: PROTEIN C - ANTIGEN 104 % (60-150); PROTEIN C - FUNCTIONAL 127 % (73-180)
[2019-09-28 07:14] LABS: FACTOR II DNA ANALYSIS Negative (())
== END 2019-09-21 16:24 | disposition home or self-care (01) | DRG 176 ==
LOC: D.ER 17:01 → D.M2 19:47
PROVIDERS: Emergency Medicine; Family Medicine; Internal Medicine Pulmonary Disease; ADMIT Family Medicine; ATTEND Family Medicine
DX: I26.99 Other pulmonary embolism without acute cor pulmonale (principal); I10 Essential (primary) hypertension; E78.5 Hyperlipidemia, unspecified; E03.9 Hypothyroidism, unspecified; E53.8 Deficiency of other specified B group vitamins; M79.7 Fibromyalgia; I08.1 Rheumatic disorders of both mitral and tricuspid valves; Z86.73 Personal history of transient ischemic attack (TIA), and cerebral infarction without residual deficits; Z87.891 Personal history of nicotine dependence

== ENCOUNTER → 2020-01-23 07:53 | Outpatient (CLI) | payer MEDICARE ==
[2019-09-18 14:36] VITALS: BMI 28.4
[~2020-01-23 07:53] MED LIST: ASPIRIN81 MG PO; AVAPRO150 MG PO; COZAAR50 MG PO; ELIQUIS5 MG PO; LEVOCETIRIZINE PO; LIPITOR10 MG PO; LIPITOR40 MG PO; NORVASC10 MG PO; PROTONIX40 MG PO; REMERON15 MG PO; SYNTHROID25 MCG PO; VITAMIN D5000 UNIT PO; ZETIA10 MG PO
[2020-01-23 08:46] LABS: CREATININE - SERUM 1.1 mg/dL (0.6-1.3)
== END | disposition home or self-care (01) ==
LOC: D.CT 07:53 → D.RT 09:00
PROVIDERS: ATTEND Internal Medicine Pulmonary Disease
DX: Z86.711 Personal history of pulmonary embolism (principal); I27.21 Secondary pulmonary arterial hypertension